=== PATIENT | female | born 2000 | race Two or more races ===

== ENCOUNTER 2018-01-03 11:21 | Day surgery (SDC) | payer SELFPAY ==
[~2018-01-03] VITALS: Ht 160 cm; Wt 63.5 kg
[2018-01-03] VITALS (11 sets, daily range): BP systolic 115–140; BP diastolic 55–84
[2018-01-03] MEDS ORDERED: fentaNYL 100 mcg/2 mL IV ONE ×4 (11:30→18:00)
[2018-01-03] MEDS ORDERED: Ketorolac 30mg Inj IM ONE (11:30)
[2018-01-03 11:56] LABS: BASOPHILS % (AUTO) 1.3 % (0.0-2.0); HEMATOCRIT 43.2 % (37.0-47.0); HEMOGLOBIN 14.1 G/DL (12.0-16.0); LYMPHOCYTES % (AUTO) 18.5 % (20.0-45.0); MEAN CORPUSCULAR VOLUME 90 FL (80-99); NEUTROPHILS % (AUTO) 70.2 % (45.0-75.0); PLATELET COUNT 282 K/UL (150-450); RED BLOOD COUNT 4.81 M/UL (4.20-5.40); RED CELL DISTRIBUTION WIDTH 12.8 % (11.6-14.8); WHITE BLOOD COUNT 9.6 K/UL (4.8-10.8)
[2018-01-03 12:07] LABS: ANION GAP 7 mmol/L (5-15); BLOOD UREA NITROGEN 6 mg/dL (7-18); CALCIUM 9.3 MG/DL (8.5-10.1); CARBON DIOXIDE 28 MMOL/L (21-32); CHLORIDE 102 MMOL/L (98-107); CREATININE 0.8 MG/DL (0.55-1.30); POTASSIUM 3.9 MMOL/L (3.5-5.1); SODIUM 137 MMOL/L (136-145)
[2018-01-03 12:12] LABS: ALANINE AMINOTRANSFERASE 22 U/L (12-78); ALBUMIN 3.9 G/DL (3.4-5.0); ALKALINE PHOSPHATASE 87 U/L (46-116); ASPARTATE AMINO TRANSFERASE 17 U/L (15-37); BILIRUBIN,TOTAL 0.5 MG/DL (0.2-1.0)
[2018-01-03 13:08] LABS: APPEARANCE,URINE CLOUDY; BILIRUBIN, URINE NEGATIVE (NEGATIVE); GLUCOSE, URINE (UA) NEGATIVE (NEGATIVE); KETONES,URINE 1+ (NEGATIVE); LEUKOCYTE ESTERASE ,URINE 1+ (NEGATIVE); NITRITE,URINE NEGATIVE (NEGATIVE); PH,URINE 8 (4.5-8.0); PROTEIN,URINE 1+ (NEGATIVE); UROBILINOGEN,URINE NORMAL MG/DL (0.0-1.0)
[2018-01-03 13:09] LABS: COLOR,URINE YELLOW
--- NOTE | 2018-01-03 14:24 | Diagnostic Imaging Report ---
Indications: Trauma, pain Technique: 2 or 3 views of the left forearm Comparison: None Findings: There is a transverse fracture of the proximal to mid ulnar shaft. This is distracted by about 6 mm, and is angulated. No evidence of associated radial fracture. There is some gas within the adjacent soft tissues. No radiopaque foreign body demonstrated Impression: Positive for proximal to mid ulnar shaft fracture, as described. Gas within the adjacent soft tissues communicate with this is a compound fracture, or could be related to an associated soft tissue laceration. Correlate with clinical findings
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
[2018-01-03] MEDS ORDERED: ceFAZolin sod 1 GM in D5W 55 ML IVPB STA (15:50)
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
[2018-01-03] MEDS ORDERED: Bacitracin Oint UD TOPIC ONE ×2 (15:56→16:30)
[2018-01-03] MEDS ORDERED: Lidocaine HCl 2% Jelly 5ml Tube TOPIC ONE (16:00)
[2018-01-03] MEDS ORDERED: Bacitracin 50000 Units Vial ONE ×2 (17:44→17:56)
[2018-01-03] MEDS ORDERED: Ropivacaine 5mg/ml Vial 30ml INJ ONE ×2 (17:44→19:25)
[2018-01-03] MEDS ORDERED: LR 1000ml ONE (18:00)
[2018-01-03] MEDS ORDERED: Midazolam 2mg/2ml Inj ONE (18:00)
[2018-01-03] MEDS ORDERED: Sterile Water Irrig 1000ml IRRIG ONE (18:00)
[2018-01-03] MEDS ORDERED: NS Irrig 1000ml ONE (18:00)
[2018-01-03] MEDS ORDERED: Glycopyrrolate 0.2mg/ml 1ml Vial ONE (18:00)
[2018-01-03] MEDS ORDERED: Propofol 200mg/20ml IV ONE (18:00)
--- NOTE | 2018-01-03 18:10 | Pre-Procedure Note/Attestation ---
Pre-Procedure Note/Attestation Complete Prior to Procedure Planned Procedure: left Procedure Narrative: Left ulna irrigation and debridement and open reduction with internal fixation. Indications for Procedure Pre-Operative Diagnosis: Left open ulna fracture Attestation I attest that I discussed the nature of the procedure; its benefits; risks and complications; and alternatives (and the risks and benefits of such alternatives ), prior to the procedure, with the patient (or the patient's legal entry level sales representative). I attest that, if there was a reasonable possibility of needing a blood transfusion, the patient (or the patient's legal entry level sales representative) was given the [facility] standardized written summary, pursuant to the [place] Blood Safety Act ([place] Health and Safety Code # 1645, as amended). I attest that I re-evaluated the patient just prior to the surgery and that there has been no change in the patient's H&P, except as documented below: RAE PRECIADO Jan 03, 2018 18:10
[2018-01-03] MEDS ORDERED: Hydromorphone 0.5mg/0.5ml inj SUBQ PRN (18:15)
[2018-01-03] MEDS ORDERED: D5 1/2NS 1,000 ML IV SCH (18:15)
[2018-01-03] MEDS ORDERED: Norco 5mg/325mg tab ORAL PRN (18:15)
[2018-01-03] MEDS ORDERED: Tylenol #3 tab (300mg/30mg) ORAL PRN (18:15)
--- NOTE | 2018-01-03 19:33 | Brief Operative Note ---
Immediate Post Operative Note Operative Note Pre-op Diagnosis: Left open ulna fracture Procedure: Left ulna irigation and debridement with ORIF Post-op Diagnosis: same as pre-op Findings: consistent w/pre-op dx studies Surgeon: Randy Anesthesia: general, regional Specimen: none Complications: none Condition: stable Fluids: 100 ml Estimated Blood Loss: minimal Drains: none Implant(s) used?: Yes RAE PRECIADO Jan 03, 2018 19:33
[2018-01-03] MEDS ORDERED: Midazolam 2mg/2ml Inj IVP PRN (19:45)
[2018-01-03] MEDS ORDERED: fentaNYL 100 mcg/2 mL IV PRN (19:45)
[2018-01-03] MEDS ORDERED: Ketorolac 30mg Inj IV PRN (19:45)
[2018-01-03] MEDS ORDERED: DiphenhydrAMINE 50mg/ml Inj IVP PRN (19:45)
--- NOTE | 2018-01-03 19:45 | Anethesia Preoperative Eval ---
Anesthesia Pre-op PMH/ROS General Date of Evaluation: Jan 03, 2018 Time of Evaluation: 18:00 Anesthesiologist: RHONDA ASA Score: ASA 2 Mallampati Score Class I : Soft palate, uvula, fauces, pillars visible Class II: Soft palate, uvula, fauces visible Class III: Soft palate, base of uvula visible Class IV: Only hard plate visible Mallampati Classification: Class II Surgeon: ILANA Diagnosis: LEFT ULNAR FRACTURE Surgical Procedure: ORIF LEFT ULNA Anesthesia History: none Family History: no anesthesia problems Allergies: Coded Allergies: No Known Allergies (Unverified , 01/03/18) Medications: see eMAR Anesthesia Pre-op Phys. Exam Physician Exam Last Vital Signs Date Time Temp Pulse Resp B/P (MAP) Pulse Ox O2 Delivery O2 Flow Rate FiO2 01/03/18 17:55 97.8 79 14 115/76 100 Room Air 97.3 Constitutional: NAD Neurologic: CN 2-12 intact Cardiovascular: RRR Respiratory: CTA Gastrointestinal: S/NT/ND Airway Exam Mallampati Score: Class II MO: full ROM: full Teeth: intact Anesthesia Pre-op A/P Labs Hematology Test 01/03/18 11:25 White Blood Count 9.6 K/UL (4.8-10.8) Red Blood Count 4.81 M/UL (4.20-5.40) Hemoglobin 14.1 G/DL (12.0-16.0) Hematocrit 43.2 % (37.0-47.0) Mean Corpuscular Volume 90 FL (80-99) Mean Corpuscular Hemoglobin 29.4 PG (27.0-31.0) Mean Corpuscular Hemoglobin Concent 32.8 G/DL (32.0-36.0) Red Cell Distribution Width 12.8 % (11.6-14.8) Platelet Count 282 K/UL (150-450) Mean Platelet Volume 6.8 FL (6.5-10.1) Neutrophils (%) (Auto) 70.2 % (45.0-75.0) Lymphocytes (%) (Auto) 18.5 % (20.0-45.0) L Monocytes (%) (Auto) 8.0 % (1.0-10.0) Eosinophils (%) (Auto) 2.0 % (0.0-3.0) Basophils (%) (Auto) 1.3 % (0.0-2.0) Coagulation Test 01/03/18 11:25 Prothrombin Time 10.0 SEC (9.30-11.50) Prothromb Time International Ratio 1.0 (0.9-1.1) Chemistry Test 01/03/18 11:25 Sodium Level 137 MMOL/L (136-145) Potassium Level 3.9 MMOL/L (3.5-5.1) Chloride Level 102 MMOL/L (98-107) Carbon Dioxide Level 28 MMOL/L (21-32) Anion Gap 7 mmol/L (5-15) Blood Urea Nitrogen 6 mg/dL (7-18) L Creatinine 0.8 MG/DL (0.55-1.30) Estimat Glomerular Filtration Rate > 60 mL/min (>60) Glucose Level 139 MG/DL (74-106) H Calcium Level 9.3 MG/DL (8.5-10.1) Total Bilirubin 0.5 MG/DL (0.2-1.0) Aspartate Amino Transf (AST/SGOT) 17 U/L (15-37) Alanine Aminotransferase (ALT/SGPT) 22 U/L (12-78) Alkaline Phosphatase 87 U/L (46-116) Total Protein 7.8 G/DL (6.4-8.2) Albumin 3.9 G/DL (3.4-5.0) Globulin 3.9 g/dL Albumin/Globulin Ratio 1.0 (1.0-2.7) Urine Test Test 01/03/18 12:45 Urine HCG, Qualitative Negative Risk Assessment & Plan Plan: GA Status Change Before Surgery: No Pre-Antibiotics Drug: ANCEF Given Within 1 Hr of Incision: Yes Time Given: 18:20 Damien Renee M.D. Jan 03, 2018 19:45
--- NOTE | 2018-01-03 19:47 | Immediate Post-Op Evaluation ---
Immediate Post-Op Evalulation Immediate Post-Op Evalulation Procedure: ORIF LEFT ULNA Date of Evaluation: Jan 03, 2018 Time of Evaluation: 19:40 IV Fluids: 600 Blood Products: 0 Estimated Blood Loss: 10 Urinary Output: 0 Blood Pressure Systolic: 142 Blood Pressure Diastolic: 63 Pulse Rate: 69 Respiratory Rate: 16 O2 Sat by Pulse Oximetry: 99 Temperature (Fahrenheit): 98.5 Pain Score (1-10): 0 Nausea: No Vomiting: No Patient Status: awake, reacts, patent, extubated Hydration Status: adequate Drug: ANCEF Given Within 1 Hr of Incision: Yes Time Given: 18:20 Damien Renee M.D. Jan 03, 2018 19:47
[2018-01-03] MEDS: NeoSporin Gu Irrig 1ml Amp IRRIG ONE ×2 (19:48→19:49)
[2018-01-03] MEDS ORDERED: LR 1000ml 1,000 ML IVLG SCH (20:00)
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
--- NOTE | 2018-01-04 11:09 | Diagnostic Imaging Report ---
Indication: Pain Forearm pain Findings: 3 views of the left forearm were obtained. Total fluoroscopic time 10.5 seconds. Fluoroscopic imaging showing plate and screw reduction of a mid ulnar shaft fracture. IMPRESSION: Intraoperative imaging
== END 2018-01-03 20:54 | disposition home or self-care (01) ==
LOC: EDBD 11:21 → EMR 13:15 → SUR 16:53
DX: S52.242A Displaced spiral fracture of shaft of ulna, left arm, initial encounter for closed fracture (principal); V49.9XXA Car occupant (driver) (passenger) injured in unspecified traffic accident, initial encounter; Y93.9 Activity, unspecified; Y92.410 Unspecified street and highway as the place of occurrence of the external cause; L40.9 Psoriasis, unspecified
CPT/HCPCS: 11012; 25545; 36415; 73090; 73130; 76001; 80053; 81001; 81025; 85025; 85610; 96361; 96365; 96372; 96375; 99284; C1713; J0690; J1885; J2250; J2405; J2704; J2795; J3010; J7120; 94003; 94150